=== PATIENT | female | born 1995 | race Caucasian/White ===

== ENCOUNTER 2016-11-16 03:58 | Emergency (ER) | payer BC, MEDICAID ==
[~2016-11-16] VITALS: Ht 167.6 cm; Wt 61.0 kg
[2016-11-16 06:47] VITALS: BP 108/67
== END 2016-11-16 07:10 | disposition home or self-care (01) ==
LOC: ER 03:58
DX: F10.129 Alcohol abuse with intoxication, unspecified (principal); F17.200 Nicotine dependence, unspecified, uncomplicated
CPT/HCPCS: 81025; 99283